=== PATIENT | male | born 1965 | race African-American/Black ===

== ENCOUNTER 2019-06-13 12:56 | Emergency (ER) | payer BC ==
[2019-06-13] MEDS ORDERED: KETOROLAC 30 MG/ML INJ ONE (15:06)
[2019-06-13] MEDS ORDERED: METHYLPREDNISOLONE 125 MG INJ ONE (15:06)
--- NOTE | 2019-06-13 15:46 | RAD REPORT ---
EXAM DESCRIPTION: MRI - Lumbar Spine Wo Con - 06/13/2019 3:15 pm CLINICAL HISTORY: Left leg numbness COMPARISON: None. TECHNIQUE: Sagittal T1, T2 and STIR weighted sequences were obtained. Axial T1 and T2 sequences were obtained through the lumbar disc levels. FINDINGS: L1-2, L2-3, L3-4, L4-5 and L5-S1 unremarkable Significant disc bulge/herniation not noted. No spinal stenosis. T1 weighted sequences demonstrate diminished signal throughout the vertebra. IR sequences demonstrate normal signal. IMPRESSION: Abnormal signal involving the vertebra may indicate red marrow reconversion Otherwise unremarkable exam
--- NOTE | 2019-06-13 16:09 | ER ---
Nurse's Notes [facility] Name: Arben Sung Age: 53 yrs Sex: Male : 1965 Arrival Date: 06/13/2019 Time: 12:59 Bed 30 Private MD: Diagnosis: Low back pain Presentation: 06/13 13:00 Presenting complaint: Patient states: i had hx of back problem, and suddenly today, i hb felt my L leg is weak and numb; pain 9/10;. Transition of care: patient was not received from another setting of care. Onset of symptoms was June 13, 2019. Risk Assessment: Do you want to hurt yourself or someone else? Patient reports no desire to harm self or others. Initial Sepsis Screen: Does the patient meet any 2 criteria? No. Patient's initial sepsis screen is negative. Does the patient have a suspected source of infection? No. Patient's initial sepsis screen is negative. Care prior to arrival: None. 13:00 Method Of Arrival: Ambulatory hb 13:00 Acuity: PHIL 4 hb Historical: - Allergies: 13:03 codeine; hb - PMHx: 13:03 Back pain; hb - PSHx: 13:03 Knee surgery; hb - Immunization history:: Flu vaccine status is unknown. - Social history:: Smoking status: unknown. - Ebola Screening: : No symptoms or risks identified at this time. Screenin:23 Abuse screen: Denies threats or abuse. Denies injuries from another. Nutritional mg2 screening: No deficits noted. Tuberculosis screening: No symptoms or risk factors identified. Fall Risk Gait- Weak (10 pts.). Assessment: 13:25 General: Appears in no apparent distress. comfortable, Behavior is calm, cooperative. mg2 Pain: Complains of pain in lower back Pain does not radiate. Pain currently is 5 out of 10 on a pain scale. Quality of pain is described as aching, Pain began suddenly, 2 months ago. Neuro: Level of Consciousness is awake, alert, obeys commands, Oriented to person, place, time, situation. Cardiovascular: Capillary refill < 3 seconds Patient's skin is warm and dry. Respiratory: Airway is patent Respiratory effort is even, unlabored, Respiratory pattern is regular, symmetrical. GI: No signs and/or symptoms were reported involving the gastrointestinal system. : No signs and/or symptoms were reported regarding the genitourinary system. EENT: No signs and/or symptoms were reported regarding the EENT system. Derm: Skin is intact, is healthy with good turgor, Skin is pink, warm \T\ dry. normal. Musculoskeletal: Reports pain in left lower back. Vital Signs: 13:03 BP 126 / 75; Pulse 65; Resp 18; Temp 97.9(TE); Pulse Ox 99% on R/A; Weight 69.4 kg; hb Height 5 ft. 9 in. (175.26 cm); Pain 9/10; 13:28 BP 115 / 85; Pulse 68; Resp 18; Pulse Ox 99% on R/A; mg2 15:34 BP 118 / 84; Pulse 63; Resp 18; Pulse Ox 100% on R/A; mg2 13:03 Body Mass Index 22.59 (69.40 kg, 175.26 cm) hb ED Course: 12:59 Patient arrived in ED. as 13:02 Triage completed. hb 13:03 Arm band placed on right wrist. hb 13:09 Billy Patino MD is Attending Physician. kdr 13:20 Holden Alegria RN is Primary Nurse. mg2 13:27 Patient has correct armband on for positive identification. mg2 13:27 No provider procedures requiring assistance completed. mg2 15:18 MRI Lumbar Spine wo Con In Process Unspecified. EDMS 15:34 Inserted saline lock: 22 gauge in right antecubital area, using aseptic technique. mg2 Blood collected. 16:27 IV discontinued, intact, bleeding controlled, No redness/swelling at site. Pressure mg2 dressing applied. Administered Medications: 15:33 Drug: TORadol - Ketorolac 15 mg Route: IVP; Site: right antecubital; mg2 16:13 Follow up: Response: No adverse reaction mg2 15:33 Drug: SOLU-Medrol 125 mg Route: IVP; Site: right antecubital; mg2 16:13 Follow up: Response: No adverse reaction; Marked relief of symptoms mg2 Outcome: 16:09 Discharge ordered by . kdr 16:27 Discharged to home ambulatory, with family. mg2 16:27 Condition: stable 16:27 Discharge instructions given to patient, family, Instructed on discharge instructions, follow up and referral plans. medication usage, Demonstrated understanding of instructions, follow-up care, medications, Prescriptions given X 4. 16:28 Patient left the ED. mg2 Signatures: Dispatcher [employer] EDMS Billy Patino MD MD [facility] Azucena Persaud as Clarita Goel RN RN Holden Alegria RN RN mg2 Corrections: (The following items were deleted from the chart) 13:04 13:03 69.4 kg; Height 5 ft. 9 in.; BMI: 22.5; Pain 9/10; hb hb 13:04 13:03 Pulse 65bpm; Resp 18bpm; Pulse Ox 99% RA; Temp 97.9F Temporal; 69.4 kg; Height 5 hb ft. 9 in.; BMI: 22.5; Pain 9/10; hb 15:34 13:27 Patient did not have IV access during this emergency room visit. mg2 mg2
--- NOTE | 2019-06-13 16:09 | EDPHYS ---
Physician Documentation [facility] Name: Arebn Sung Age: 53 yrs Sex: Male : 1965 Arrival Date: 06/13/2019 Time: 12:59 Bed 30 Private MD: ED Physician Billy Patino HPI: 06/13 14:40 This 53 yrs old Black Male presents to ER via Ambulatory with complaints of Back Pain, kdr Numbness. 14:40 The patient presents with pain that is acute, that is chronic, and decreased range of kdr motion, and an injury. The symptoms are located in the low back, coccyx area. Onset: The symptoms/episode began/occurred gradually, 3 week(s) ago. Location: left low back. Associated signs and symptoms: Pertinent positives: none Pertinent negatives: abdominal pain, chest pain, constipation, dysuria, fever, headache, hematuria, incontinence, nausea, numbness, tingling, urinary retention, vomiting, weakness. The problem was sustained when lifting heavy object. Modifying factors: The patient symptoms are alleviated by nothing, the patient symptoms are aggravated by bending, coughing, lifting, movement, nothing, playing sports, standing, supine position. Severity of symptoms: At their worst the symptoms were severe, in the emergency department the symptoms have improved, mildly. The patient has not experienced similar symptoms in the past. The patient has been recently seen by a physician: the patient's primary care provider. Historical: - Allergies: 13:03 codeine; hb - PMHx: 13:03 Back pain; hb - PSHx: 13:03 Knee surgery; hb - Immunization history:: Flu vaccine status is unknown. - Social history:: Smoking status: unknown. - Ebola Screening: : No symptoms or risks identified at this time. ROS: 14:40 Constitutional: Negative for fever, chills, and weight loss, Eyes: Negative for injury, kdr pain, redness, and discharge, ENT: Negative for injury, pain, and discharge, Neck: Negative for injury, pain, and swelling, Cardiovascular: Negative for chest pain, palpitations, and edema, Respiratory: Negative for shortness of breath, cough, wheezing, and pleuritic chest pain, Abdomen/GI: Negative for abdominal pain, nausea, vomiting, diarrhea, and constipation, : Negative for injury, bleeding, discharge, and swelling, MS/Extremity: Negative for injury and deformity, Skin: Negative for injury, rash, and discoloration, Neuro: Negative for headache, weakness, numbness, tingling, and seizure activity. Psych: Negative for depression, anxiety, suicide ideation, homicidal ideation, and hallucinations, Allergy/Immunology: Negative for hives, rash, and allergies, Endocrine: Negative for neck swelling, polydipsia, polyuria, polyphagia, and marked weight changes, Hematologic/Lymphatic: Negative for swollen nodes, abnormal bleeding, and unusual bruising. 14:40 Back: Positive for injury or acute deformity, decreased range of motion, pain at rest, pain with movement, radiated pain. 14:40 MS/extremity: Positive for pain, tingling, Mild vague symptoms that have been improving.kdr Exam: 14:40 Constitutional: This is a well developed, well nourished patient who is awake, alert, kdr and in no acute distress. Head/Face: Normocephalic, atraumatic. Eyes: Pupils equal round and reactive to light, extra-ocular motions intact. Lids and lashes normal. Conjunctiva and sclera are non-icteric and not injected. Cornea within normal limits. Periorbital areas with no swelling, redness, or edema. Neck: Trachea midline, no thyromegaly or masses palpated, and no cervical lymphadenopathy. Supple, full range of motion without nuchal rigidity, or vertebral point tenderness. No Meningismus. Chest/axilla: Normal chest wall appearance and motion. Nontender with no deformity. No lesions are appreciated. Cardiovascular: Regular rate and rhythm with a normal S1 and S2. No gallops, murmurs, or rubs. Normal PMI, no JVD. No pulse deficits. Respiratory: Lungs have equal breath sounds bilaterally, clear to auscultation and percussion. No rales, rhonchi or wheezes noted. No increased work of breathing, no retractions or nasal flaring. Abdomen/GI: Soft, non-tender, with normal bowel sounds. No distension or tympany. No guarding or rebound. No evidence of tenderness throughout. Skin: Warm, dry with normal turgor. Normal color with no rashes, no lesions, and no evidence of cellulitis. MS/ Extremity: Pulses equal, no cyanosis. Neurovascular intact. Full, normal range of motion. Neuro: Awake and alert, GCS 15, oriented to person, place, time, and situation. Cranial nerves II-XII grossly intact. Motor strength 5/5 in all extremities. Sensory grossly intact. Cerebellar exam normal. Normal gait. Psych: Awake, alert, with orientation to person, place and time. Behavior, mood, and affect are within normal limits. 14:40 Back: pain, that is mild, ROM is painful, with flexion, with extension, normal spinal alignment noted, CVA tenderness, is absent, vertebral tenderness, is not appreciated, muscle spasm, is not present, Straight leg raises: of both lower extremities does not illicit pain. Vital Signs: 13:03 BP 126 / 75; Pulse 65; Resp 18; Temp 97.9(TE); Pulse Ox 99% on R/A; Weight 69.4 kg; hb Height 5 ft. 9 in. (175.26 cm); Pain 9/10; 13:28 BP 115 / 85; Pulse 68; Resp 18; Pulse Ox 99% on R/A; mg2 15:34 BP 118 / 84; Pulse 63; Resp 18; Pulse Ox 100% on R/A; mg2 13:03 Body Mass Index 22.59 (69.40 kg, 175.26 cm) hb MDM: 16:09 Patient medically screened. kdr 16:25 Data reviewed: vital signs, nurses notes, lab test result(s), radiologic studies. kdr Counseling: I had a detailed discussion with the patient and/or guardian regarding: the historical points, exam findings, and any diagnostic results supporting the discharge/admit diagnosis, lab results, radiology results, the need for outpatient follow up. 06/13 13:38 Order name: MRI Lumbar Spine wo Con; Complete Time: 16:03 kdr Administered Medications: 15:33 Drug: TORadol - Ketorolac 15 mg Route: IVP; Site: right antecubital; mg2 16:13 Follow up: Response: No adverse reaction mg2 15:33 Drug: SOLU-Medrol 125 mg Route: IVP; Site: right antecubital; mg2 16:13 Follow up: Response: No adverse reaction; Marked relief of symptoms mg2 Disposition: 06/13/19 16:09 Discharged to Home. Impression: Low back pain. - Condition is Stable. - Discharge Instructions: Back Pain, Adult, [id number]. - Prescriptions for Ibuprofen 800 mg Oral Tablet - take 1 tablet by ORAL route every 8 hours As needed take with food; 15 tablet. Cyclobenzaprine 10 mg Oral Tablet - take 1 tablet by ORAL route every 8 hours As needed; 15 tablet. Tramadol 50 mg Oral Tablet - take 1 tablet by ORAL route every 8 hours as needed; 15 tablet. Medrol (Babatunde) 4 mg Oral Tablets, Dose Pack - take 1 tablet by ORAL route as directed - follow package instructions; 1 packet. - Medication Reconciliation Form, Thank You Letter form. - Follow up: Private Physician; When: 2 - 3 days; Reason: If symptoms return, Further diagnostic work-up, Recheck today's complaints, Continuance of care, Re-evaluation by your physician. - Problem is an ongoing problem. - Symptoms have improved. Signatures: Dispatcher [employer] EDMS Billy Patino MD MD [facility] Clarita Goel RN RN Holden Alegria RN RN mg2 Corrections: (The following items were deleted from the chart) 16:28 16:09 06/13/2019 16:09 Discharged to Home. Impression: Low back pain. Condition is mg2 Stable. Forms are Medication Reconciliation Form, Thank You Letter, Antibiotic Education, Prescription Opioid Use. Follow up: Private Physician; When: 2 - 3 days; Reason: If symptoms return, Further diagnostic work-up, Recheck today's complaints, Continuance of care, Re-evaluation by your physician. Problem is an ongoing problem. Symptoms have improved. kdr
== END 2019-06-13 16:28 | disposition home or self-care (01) ==
LOC: ER 12:56
DX: M54.5 Low back pain (principal); Z88.5 Allergy status to narcotic agent
CPT/HCPCS: 72148; 96374; 96375; 99284; J2930